=== PATIENT | female | born 1940 | race Caucasian/White ===

== ENCOUNTER 2021-06-30 10:44 | Emergency (ER) | payer MEDICARE, BC ==
[~2021-06-30] VITALS: Ht 152.4 cm; Wt 55.5 kg
[2021-06-30] MEDS ORDERED: acetaminophen 325mg tablet PO ONE (15:15)
[2021-06-30] MEDS ORDERED: HYDROcodone/acetaminophen 5mg/325mg tablet PO ONE (15:15)
[2021-06-30] MEDS ORDERED: LIDOcaine 5% patch TP ONE (15:20)
[2021-06-30 16:10] VITALS: BP 190/99
[2021-06-30] MEDS ORDERED: LIDO700A32 TOP (16:33)
[2021-06-30] MEDS ORDERED: HYDR-3965 PO (16:33)
[2021-06-30] MEDS ORDERED: ACET-1025 PO (16:33)
== END 2021-06-30 16:51 | disposition home or self-care (01) ==
LOC: ER 10:45
DX: M54.50 Low back pain, unspecified (principal); M25.511 Pain in right shoulder; Z79.82 Long term (current) use of aspirin
CPT/HCPCS: 71046; 99284